=== PATIENT | male | born 1980 | race African-American/Black ===

== ENCOUNTER 2024-07-04 17:05 | Emergency (ER) | payer BC ==
[~2024-07-04] VITALS: Ht 180.3 cm; Wt 81.6 kg
[2024-07-04 17:14] VITALS: TEMP 98.9
[2024-07-04] MEDS: ACETAMINOPHEN 325 MG TAB PO ONE (17:35)
[2024-07-04] MEDS: ORPHENADRINE CITRATE 30 MG/ML VIAL IM ONE (17:36)
[2024-07-04] MEDS: KETOROLAC TROMETHAMINE 60 MG/2 ML VIAL IM ONE (17:37)
[2024-07-04] MEDS: LIDOCAINE 4% PATCH TP SCH (17:37)
[2024-07-04] MEDS ORDERED: METHOCARBAMOL750 MG PO (18:15)
[2024-07-04 18:30] VITALS: PULSE 61; RESP 16; O2SAT 97
== END 2024-07-04 18:45 | disposition home or self-care (01) ==
LOC: ER 17:16
DX: M54.6 Pain in thoracic spine (principal); M54.50 Low back pain, unspecified; M62.830 Muscle spasm of back; F17.210 Nicotine dependence, cigarettes, uncomplicated
CPT/HCPCS: 99282; J1885; J2360